=== PATIENT | female | born 1930 | race Caucasian/White ===

== ENCOUNTER → 2019-01-28 | Outpatient (CLI) | payer MEDICARE ==
[~2019-01-28] MED LIST: ASPIR 8181 MG PO; CALCIUM600 MG PO; CLOTRIMAZOLE-BE15 GM TOP; GABAPENTIN300 MG PO; GENERLAC10 GM/15 M PO; HYDROCODONE PO; MAGNESIUM250 MG PO; MULTIVITAMINS1 EAC8 PO; NEURONTIN100 MG PO; PREMARIN42.5 GM VG; PRILOSEC PO; PROBIOTIC 4X C1 EACH PO; SYNTHROID50 MCG; ULTRAM50 MG PO; VALIUM5 MG PO; VITAMIN B-121000 MCG PO; VITAMIN C500 M1 PO; VITAMIN D PO; VITAMIN E400 UNIT PO
--- NOTE | 2019-01-28 17:23 | Diagnostic Imaging Report ---
Exam: Chest radiograph Clinical History: Chest congestion Findings: The cardiomediastinal silhouette and lungs are normal. The regional skeleton and soft tissue are unremarkable. There is no evidence of pleural effusion or pneumothorax. Impression: No radiographic evidence of acute cardiopulmonary disease. Signed by: Dr. Kai Tang MD on 01/28/2019 5:20 PM
== END ==
LOC: RAD 15:25
DX: R09.89 Other specified symptoms and signs involving the circulatory and respiratory systems (principal)
CPT/HCPCS: 71046

== ENCOUNTER → 2019-07-06 | Day surgery (SDC) | payer MEDICARE ==
[~2019-07-06] MED LIST changes: +ACETAMINOPHEN 1000 MG/100 ML 0 ML IV ONE; +ACETAMINOPHEN 1000 MG/100 ML 100 ML IV ONE; +AMITRIPTYLINE H10 MG PO; +FENTANYL CITRATE/PF 100MCG/2 ML INJ ONE; +HYOSCYAMINE 0.125 MG TAB ONE; +KETAMINE HCL INJ 50 MG/ML 10 ML VIAL ONE; +LORAZEPAM PO; +MIDAZOLAM HCL 2 MG/2 ML VIAL ONE; +PROPOFOL IV EMULSION 10 MG/ML 50 ML VIAL ONE
--- OUTSIDE RECORDS SUMMARY | 2019-07-06 09:36 | XMS REPORT ---
Author [facility] Address Unknown Phone Unavailable Care Team Providers Care Neuro Ophthalmologist Name Role Phone YESENIA BEAVERS Unavailable Unavailable Nasreen KIRBY Unavailable Unavailable Payers Payer Name Policy Type Policy Number Effective Date Expiration Date Problems This patient has no known problems. Allergies, Adverse Reactions, Alerts Allergy Name Allergy Type Status Severity Reaction(s) Onset Date Inactive Date Treating Clinician Comments No Known Allergies DA Active U 2019-03-24 00:00:00 Medications This patient has no known medications. Results Test Description Test Time Test Comments Text Results Atomic Results Result Comments BASIC METABOLIC PANEL 2019-03-25 06:55:00 SODIUM (test code=NA) 141 mmol/L 136-145 POTASSIUM (test code=K) 4.1 mmol/L 3.5-5.1 CHLORIDE (test code=CL) 109.0 mmol/L 98-107 CARBON DIOXIDE (test code=CO2) 24.0 mmol/L 21-32 ANION GAP (test code=GAP) 12.1 10-20 GLUCOSE (test code=GLU) 95 mg/dL 74-106 BLOOD UREA NITROGEN (test code=BUN) 15 mg/dL 7-18 RESULT VERIFIED BY REPEAT ANALYSIS GLOMERULAR FILTRATION RATE (test code=GFR) 52 mL/min >=60 Estimated GFR by using Modified MDRD formula.Chronic kidney disease is defined as either kidney damageor GFR <60 mL/min/1.73 m2 for >3 months. CREATININE (test code=CREAT) 1.00 mg/dL 0.55-1.02 Note change in reference range due to change in reagent. BUN/CREATININE RATIO (test code=BUN/CREA) 15.0 10-20 CALCIUM (test code=CA) 8.7 mg/dL 8.5-10.1 CBC W/AUTO [id number] 06:43:00* Test Item Value Reference Range Comments WHITE BLOOD CELL (test code=WBC) 8.0 K/mm3 4.5-12.5 RED BLOOD CELL (test code=RBC) 4.05 mill/mm3 3.7-5.2 HEMOGLOBIN (test code=HGB) 11.0 gram/dL 11.5-15.5 HEMATOCRIT (test code=HCT) 34.9 % 36.0-46.0 MEAN CELL VOLUME (test code=MCV) 86.2 fL 80-98 MEAN CELL HGB (test code=MCH) 27.2 picogram 27.0-33.0 MEAN CELL HGB CONCETRATION (test code=MCHC) 31.5 gram/dL 33.0-36.0 RED CELL DISTRIBUTION WIDTH (test code=RDW) 15.0 % 11.6-16.2 RED CELL DISTRIBUTION WIDTH SD (test code=RDW-SD) 47.8 fL 37.0-51.0 PLATELET COUNT (test code=PLT) 239 K/mm3 150-450 MEAN PLATELET VOLUME (test code=MPV) 10.9 fL 6.7-11.0 NEUTROPHIL % (test code=NT%) 58.6 % 39.0-69.0 IMMATURE GRANULOCYTE % (test code=IG%) 0.5 % 0.0-5.0 LYMPHOCYTE % (test code=LY%) 26.5 % 25.0-55.0 MONOCYTE % (test code=MO%) 9.5 % 0.0-10.0 EOSINOPHIL % (test code=EO%) 4.0 % 0.0-5.0 BASOPHIL % (test code=BA%) 0.9 % 0.0-1.0 NUCLEATED RBC % (test code=NRBC%) 0.0 % 0-0 NEUTROPHIL # (test code=NT#) 4.71 K/mm3 1.8-7.7 IMMATURE GRANULOCYTE # (test code=IG#) 0.04 x10 3/uL 0-0.03 LYMPHOCYTE # (test code=LY#) 2.13 K/mm3 1.0-5.0 MONOCYTE # (test code=MO#) 0.76 K/mm3 0-0.8 EOSINOPHIL # (test code=EO#) 0.32 K/mm3 0.0-0.5 BASOPHIL # (test code=BA#) 0.07 K/mm3 0.0-0.2 NUCLEATED RBC # (test code=NRBC#) 0.00 K/mm3 0.0-0.1 MANUAL DIFF REQUIRED (test code=MDIFF) NO URINALYSIS [id number] 04:52:00* Test Item Value Reference Range Comments UA COLOR (test code=COLU) Light-Yellow YELLOW UA APPEARANCE (test code=APPU) CLEAR CLEAR UA GLUCOSE DIPSTICK (test code=DGLUU) NEGATIVE mg/dL NEGATIVE UA BILIRUBIN DIPSTICK (test code=BILU) NEGATIVE mg/dL NEGATIVE UA KETONE DIPSTICK (test code=KETU) NEGATIVE mg/dL NEGATIVE UA SPECIFIC GRAVITY (test code=SGU) 1.014 1.001-1.035 UA BLOOD DIPSTICK (test code=WIL) 0.06 mg/dL (1+) mg/dL NEGATIVE UA PH DIPSTICK (test code=MARIAN) 6.5 5.0-8.0 UA PROTEIN DIPSTICK (test code=PROU) NEGATIVE mg/dL NEGATIVE UA UROBILINIOGEN DIPSTICK (test code=URO) Normal mg/dL NEGATIVE UA NITRITE DIPSTICK (test code=ALEX) NEGATIVE NEGATIVE UA LEUKOCYTE ESTERASE W REFLEX (test code=LEUUR) NEGATIVE Sivakumar/uL NEGATIVE UA WBC (test code=WBCU) 0-5 per HPF 0-5 UA RBC (test code=RBCU) 0-2 #/HPF 0-5 UA EPITHELIAL CELLS (test code=EPIU) FEW per HPF FEW UA BACTERIA (test code=BACU) FEW #/HPF NONE Urine Source? Catheter- XR FEMUR MIN 2 VWS [id number] 09:34:00 FAX: Yeseina Connell MD [phone] [place]: B St: [facility] FAX: Fabiana Gates [phone] Name: MARILYN MANCINI [facility] : 1930 Age/S: 88/F [address] Unit #: [id number] Loc: [place], [place] [address] Phys: Fabiana Cline MD Acct: [id number] Dis Date: Status: ADM IN PHONE #: [phone] Exam Date: 03/24/2019904 FAX #: [phone] Reason: fall EXAMS: CPT CODE: [id number] XR FEMUR MIN [address] [place] [address] CLINICAL HISTORY: fall TECHNIQUE: 2 views of the left femur COMPARISON: Pelvis radiograph earlier today are available for review FINDINGS: No acute fracture or dislocat ion. Bony trabecular pattern is unremarkable. No cortical destruction or p eriosteal reaction. Degenerative changes in the left knee are bet ter described on the left knee radiographs performed today. Severe degener ative changes are present in the left hip with deformity of the left femor al head. 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 There are also degenerative changes in the left knee. However there is no acu te bony abnormality of the left femur. at 0934 Reported and signed by: Herminio Koch MD CC: Yesenia Beavers MD; Fabiana Cline MD Technologist: Cosmo Lal RT(R); BRITTNEY MITCHELL RT(R) Trncard Date/Time/By: 03/24/2019 (0934) : By: [email or web address] Orig Print D /T: S: 03/24/2019 (0937) PAGE 1 S igned Report - XR KNEE 3 V [id number] 09:31:00 FAX: Yesenia Connell MD [phone] [place]: St: [facility] FAX: Fabiana Gates [phone] Name: MARILYN MANCINI : 1930 Age/S: 88/F [address] Unit #: [id number] Loc: [place] [address] Phys: Fabiana Cline MD Acct: [id number] Dis Date: Status: ADM IN PHONE #: [phone] Exam Date: 03/24/2019904 FAX #: [phone] Reason: fall EXAMS: CPT CODE: [id number] XR KNEE 3 V LT [address] CLINICAL HISTORY: fall TECHNIQUE: 3 views of the left knee COMPARISON: None FINDINGS: No acute fracture. Bony trabecular pattern is unremarkable. No cortical dest ruction or periosteal reaction. Tricompartmental joint space narr owing with meniscal calcifications and small osteophytes are present. No j oint effusion or stranding in Hoffa's fat pad. IMP RESSION: Severe degenerative changes of the left knee but no acute fract ure or malalignment. Electronically Signed by Herminio Koch MD on 03/06 at 0931 Reported and signed by: Herminio Koch MD CC: Yesenia Beavers MD; Fabiana Cline MD Te chnologist: Cosmo Lal RT(R); BRITTNEY MITCHELL RT(R) Trnscrd Date/ Time/By: 03/24/2019 (0931) : By: [email or web address] Orig Print D/T: S: 03/24/20 19 (0918) PAGE 1 Signed Report DRUGS OF ABUSE SCREEN [id number] 08:52:00* Test Item Value Reference Range Comments UA PH DIPSTICK (test code=MARIAN) 5.5 5.0-8.0 URN COCAINE (test code=COCAURN) NEGATIVE <300 ng/mL URN CANNABINOIDS (test code=CANNABURN) NEGATIVE <50 ng/mL URN AMPHETAMINE (test code=AMPHETURN) NEGATIVE <1000 ng/mL URN BARBITURATE (test code=BARBITURN) NEGATIVE <200 ng/mL URN BENZODIAZEPINE (test code=BENZOURN) NEGATIVE <200 ng/mL URN OPIATES (test code=OPIATURN) POSITIVE <300 ng/mL This test provides only a preliminary test result. A morespecific alternate chemical method must be used in order toobtain a confirmed analytical result. Gas chromatography/mass spectrometry (GC/MS) is thepreferred confirmatory method. Other chemical confirmationmethods are available. Clinical consideration and professional judgment should be applied to any drug of abusetest result, particularly when preliminary positive resultsare used.Unconfirmed screening results must not be used fornon-medical purposes (e.g., employment testing, legaltesting). URN PHENCYCLIDINE (PCP) (test code=PHENCURN) NEGATIVE <25 ng/mL URN METHADONE (test code=METHAURN) NEGATIVE <300 ng/mL - XR PELVIS 1/2 [id number] 08:41:00 FAX: Yesenia Connell MD [phone] [place]: St: [facility] FAX: Fabiana Gates [phone] Name: MARILYN MANCINI [facility] : 1930 Age/S: 88/F [address] [facility] Unit #: [id number] Loc: [place] [address] Phys: Fabiana Cline MD Acct: [id number] Dis Date: Status: REG ER PHONE #: [phone] Exam Date: 03/24/2019 08 FAX #: [phone] Reason: fall EXAMS: CPT CODE: [id number] XR PELVIS 1/2 VIEWS 09316 HISTORY: fall EXAM: AP pelvis Com parison: None FINDINGS: No acute fracture of the bon y pelvis. There are severe degenerative changes in the left hip w ith deformity of the left femoral head as well as subchondral and scleroti c changes in both the left acetabulum and left femoral head. There are als o degenerative changes in the right hip. Degenerative changes are pr esent in the spine and sacroiliac joints. No diastases of the pubic symphy sis. IMPRESSION: No acute fracture or malalignm ent in the bony pelvis or hips or visualized spine. Severe degenerative changes are present in the hips and spine. Electronically S igned by Herminio Koch MD on 03/24/2019 at 0841 Reported a nd signed by: Herminio Koch MD CC: Yesenia Beavers MD; Omari Cline MD Technologist: Jorge Beck RT(R) Trnscrd Date/Time/By: 03/24/2019 (0841) : By: [email or web address] Orig Print D/T: S: 03/24/2019 (0845) PAGE 1 Signed Report DRUGS OF ABUSE SCREEN UR 2019-03-24 08:24:00* Test Item Value Reference Range Comments UA PH DIPSTICK (test code=MARIAN) 5.5 5.0-8.0 URN COCAINE (test code=COCAURN) <300 ng/mL URN CANNABINOIDS (test code=CANNABURN) <50 ng/mL URN AMPHETAMINE (test code=AMPHETURN) <1000 ng/mL URN BARBITURATE (test code=BARBITURN) <200 ng/mL URN BENZODIAZEPINE (test code=BENZOURN) <200 ng/mL URN OPIATES (test code=OPIATURN) <300 ng/mL URN PHENCYCLIDINE (PCP) (test code=PHENCURN) <25 ng/mL URN METHADONE (test code=METHAURN) <300 ng/mL URINALYSIS [id number] 07:52:00* Test Item Value Reference Range Comments UA COLOR (test code=COLU) Light-Yellow YELLOW UA APPEARANCE (test code=APPU) CLEAR CLEAR UA GLUCOSE DIPSTICK (test code=DGLUU) NEGATIVE mg/dL NEGATIVE UA BILIRUBIN DIPSTICK (test code=BILU) NEGATIVE mg/dL NEGATIVE UA KETONE DIPSTICK (test code=KETU) NEGATIVE mg/dL NEGATIVE UA SPECIFIC GRAVITY (test code=SGU) 1.015 1.001-1.035 UA BLOOD DIPSTICK (test code=WIL) 0.1 mg/dL (1+) mg/dL NEGATIVE UA PH DIPSTICK (test code=MARIAN) 5.5 5.0-8.0 UA PROTEIN DIPSTICK (test code=PROU) 20 (Trace) mg/dL NEGATIVE UA UROBILINIOGEN DIPSTICK (test code=URO) Normal mg/dL NEGATIVE UA NITRITE DIPSTICK (test code=ALEX) POSITIVE NEGATIVE UA LEUKOCYTE ESTERASE W REFLEX (test code=LEUUR) NEGATIVE Sivakumar/uL NEGATIVE UA WBC (test code=WBCU) 0-5 per HPF 0-5 UA RBC (test code=RBCU) 3-5 #/HPF 0-5 UA EPITHELIAL CELLS (test code=EPIU) FEW per HPF FEW UA BACTERIA (test code=BACU) MANY #/HPF NONE UA MUCUS (test code=MUCU) FEW #/LPF FEW UA AMORPHOUS SEDIMENT (test code=AMORU) FEW #/LPF NONE Urine Source? Clean [id number] 07:48:00* Test Item Value Reference Range Comments LIPASE (test code=LIP) 41 U/L 73.0-393.0 [id number] 07:44:00* Test Item Value Reference Range Comments GLUBED (test code=GLUBED) 133 mg/dL 74-106 Performed by certified wood carving machine operator at [facility] URINALYSIS [id number] 07:43:00* Test Item Value Reference Range Comments UA COLOR (test code=COLU) Light-Yellow YELLOW UA APPEARANCE (test code=APPU) CLEAR CLEAR UA GLUCOSE DIPSTICK (test code=DGLUU) NEGATIVE mg/dL NEGATIVE UA BILIRUBIN DIPSTICK (test code=BILU) NEGATIVE mg/dL NEGATIVE UA KETONE DIPSTICK (test code=KETU) NEGATIVE mg/dL NEGATIVE UA SPECIFIC GRAVITY (test code=SGU) 1.015 1.001-1.035 UA BLOOD DIPSTICK (test code=WIL) 0.1 mg/dL (1+) mg/dL NEGATIVE UA PH DIPSTICK (test code=MARIAN) 5.5 5.0-8.0 UA PROTEIN DIPSTICK (test code=PROU) 20 (Trace) mg/dL NEGATIVE UA UROBILINIOGEN DIPSTICK (test code=URO) Normal mg/dL NEGATIVE UA NITRITE DIPSTICK (test code=ALEX) POSITIVE NEGATIVE UA LEUKOCYTE ESTERASE W REFLEX (test code=LEUUR) NEGATIVE Sivakumar/uL NEGATIVE UA WBC (test code=WBCU) per HPF 0-5 UA RBC (test code=RBCU) per HPF 0-5 UA EPITHELIAL CELLS (test code=EPIU) per HPF Few UA BACTERIA (test code=BACU) per HPF NONE Urine Source? Clean CatchTHYROID STIMULATING [id number] 07:29:00* Test Item Value Reference Range Comments THYROID STIMULATING HORMONE (test code=TSH) 3.990 uIU/mL 0.36-3.74 TSH REFERENCE RANGES: EUTHYROID: 0.35 - 4.3 mIU/mL HYPO : > 5.5 mIU/mL HYPER : < 0.35 mIU/mL BASIC METABOLIC [id number] 07:28:00* Test Item Value Reference Range Comments SODIUM (test code=NA) 137 mmol/L 136-145 POTASSIUM (test code=K) 4.0 mmol/L 3.5-5.1 CHLORIDE (test code=CL) 104.0 mmol/L 98-107 CARBON DIOXIDE (test code=CO2) 23.0 mmol/L 21-32 ANION GAP (test code=GAP) 14.0 10-20 GLUCOSE (test code=GLU) 121 mg/dL 74-106 BLOOD UREA NITROGEN (test code=BUN) 27 mg/dL 7-18 GLOMERULAR FILTRATION RATE (test code=GFR) 33 mL/min >=60 Estimated GFR by using Modified MDRD formula.Chronic kidney disease is defined as either kidney damageor GFR <60 mL/min/1.73 m2 for >3 months. CREATININE (test code=CREAT) 1.50 mg/dL 0.55-1.02 Note change in reference range due to change in reagent. BUN/CREATININE RATIO (test code=BUN/CREA) 18.0 10-20 CALCIUM (test code=CA) 9.3 mg/dL 8.5-10.1 HEPATIC FUNCTION [id number] 07:28:00* Test Item Value Reference Range Comments TOTAL PROTEIN (test code=PROT) 7.7 gram/dL 6.4-8.2 ALBUMIN (test code=ALB) 3.1 g/dL 3.4-5.0 GLOBULIN (test code=GLOB) 4.6 gram/dL 2.7-4.2 ALBUMIN/GLOBULIN RATIO (test code=A/G) 0.7 0.75-1.50 BILIRUBIN TOTAL (test code=BILT) 0.20 mg/dL 0.0-1.0 BILIRUBIN DIRECT (test code=BILD) 0.11 mg/dL 0.0-0.20 SGOT/AST (test code=AST) 15 IUnit/L 15-37 SGPT/ALT (test code=ALT) 21 IUnit/L 12-78 ALKALINE PHOSPHATASE TOTAL (test code=ALKP) 123 IUnit/L 45-117 Note change in reference range due to change in reagent. [id number] 07:28:00* Test Item Value Reference Range Comments TROPONIN-I (test code=TROPI) <0.015 ng/mL 0-0.045 - CT C-SPINE W/O [id number] 07:27:00 Name: MARILYN MANCINI [facility] : 1930 Age/S: 88 / F [address] [facility] Unit #: [id number] Loc: [place] [address] Phys: Nika Richard DO Acct: [id number] Dis Date: Status: REG ER PHONE #: [phone] Exam Date: 03/24/2019704 FAX #: [phone] Reason: fall EXAMS: CPT CODE: [id number] CT C-SPINE W/O CONTRAST 28618 HISTORY: CODE SEPSIS TECHNIQUE: Noncontrast 2.[address] of the head and cervical spine. Examination acquired within 24 hours of arrival. Automated exposure control for dose reduction. COMPARISON: None FINDINGS: No lacerations or contusions of the scalp or facial soft tissues. Calvarium and skull base are intact. No acute hemorrhage. No intracranial mass, mass effect, or midline shift. No effacement of the sulci or wayne-white matter interface. There is mild cortical atrophy that is less than expected for the patient's age. There is decreas ed attenuation of the periventricular white matter compatible with microva scular ischemic changes. No hydrocephalus.. No extra-axial fluid c ollection. There is mild mucosal thickening in the left maxillary sinus with hyperostosis of the lateral sinus wall. Remaining paranasal si nuses are clear. Mastoid air cells and middle ear cavities are gal r. There is cerumen in the bilateral external auditory canals. Prior lens extraction bilaterally. No acute fracture of the cervical s pine. No subluxation. Craniocervical and cervicothoracic articulations are appropriate. There is severely decreased height loss of the inte rvertebral discs. This results in moderate bilateral foraminal narrowing a t C5-C6 and mild foraminal narrowing throughout the remainder of the spine . No prevertebral or paraspinal soft tissue abnormality. Pearl ng apices are clear. IMPRESSION: No acute intr acranial process. 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 PAGE 1 Signed Report (CONTINUED) Name: AMRILYN MANCINI [facility] : 1930 Age/S: 88 / F [address] Unit #: [id number] Loc: [place] [address] Phys: Nika Richard DO Acct: [id number] Dis Date: Status: REG ER PHONE #: [phone] Exam Date: 03/24/2019 07 FAX #: [phone] Reason: fall EXAMS: CPT CODE: [id number] C-SPINE W/O CONTRAST 52990 <Continued > Severe degenerative changes of the cervical spine with areas of mild to moderate foraminal narrowing but no fracture or subluxation. at 0727 Reported and signed by: Herminio Koch MD CC: Nika Richard DO Technologist:[place] RT(R) CTDI: DLP: Trnscb Date/Time: 03/24/2019 (726) [email or web address] Orig Print D/T: S: 03/24/2019 (729) PAGE 2 Signed Report - CT HEAD/BRAIN W/O [id number] 07:27:00 Name: MARILYN MANCINI [facility] : 1930 Age/S: 88 / F [address] [facility] Unit #: [id number] Loc: [place] [address] Phys: Nika Richard DO Acct: [id number] Dis Date: Status: REG ER PHONE #: [phone] Exam Date: 03/24/2019704 FAX #: [phone] Reason: CODE SEPSIS EXAMS: CPT CODE: [id number] CT HEAD/BRAIN W/O CONT 74914 HISTORY: CODE SEPSIS TECHNIQUE: Noncontrast 2.[address] of the head and cervical spine. Examination acquired within 24 hours of arrival. Automated exposure control for dose reduction. COMPARISON: None FINDINGS: No lacerations or contusions of the scalp or facial soft tissues. Calvarium and skull base are intact. No acute hemorrhage. No intracranial mass, mass effect, or midline shift. No effacement of the sulci or wayne-white matter interface. There is mild cortical atrophy that is less than expected for the patient's age. There is decreased attenuation of the periventricular white matter compatible with microvascular ischemic changes. No hydrocephalus.. No extra-axial fluid collection. There is mild mucosal thickening in the left maxillary sinus with hyperostosis of the lateral sinus wall. Remaining paranasal sinuses are clear. Mastoid air cells and middle ear cavities are clear. There is cerumen in the bilateral external auditory canals. Prior lens extraction bilaterally. No acute fracture of the cervical spine. No subluxation. Craniocervical and cervicothoracic articulations are appropriate. There is severely decreased height loss of the inte rvertebral discs. This results in moderate bilateral foraminal narrowing a t C5-C6 and mild foraminal narrowing throughout the remainder of the spine . No prevertebral or paraspinal soft tissue abnormality. Pearl ng apices are clear. IMPRESSION: No acute intr acranial process. 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 PAGE 1 Signed Report (CONTINUED) Name: MARILYN MANCINI [facility] : 1930 Age/S: 88 / F [address] Unit #: [id number] Loc: [place] [address] Phys: Nika Richard DO Acct: [id number] Dis Date: Status: REG ER PHONE #: [phone] Exam Date: 03/24/2019704 FAX #: [phone] Reason: CODE SEPSIS EXAMS: CPT CODE: [id number] HEAD/BRAIN W/O CONT 28124 <Continued > Severe degenerative changes of the cervical spine with areas of mild to moderate foraminal narrowing but no fracture or subluxation. at 0727 Reported and signed by: Herminio Koch MD CC: Niak Richard DO Technologist:[place] RT(R) CTDI: DLP: Trnscb Date/Time: 03/24/2019 (726) [email or web address] Orig Print D/T: S: 03/24/2019 (0311) PAGE 2 Signed Report PROTHROMBIN [id number] 07:25:00* Test Item Value Reference Range Comments PROTHROMBIN TIME PATIENT (test code=PTP) 11.1 seconds 9.0-14.0 INTERNATIONAL NORMAL RATIO (test code=INR) 0.9 0.8-1.2 The therapeutic range for oral anticoagulant therapy formost indications is an international normalized ratio (INR)of between 2.0 and 3.0. The recommended therapeutic INRrange for various clinical situations is listed below: Clinical Situation INR range Pulmonary e mbolism treatment (2.0-3.0)Venous thrombosis treatmentVenous thrombosis prophylaxis (high risk surgery)Prevention of systemic embolism from: Acute myocardial infarction Valvular heart disease Atrial fibrillation Mechanical prosthetic heart valves (2.5-3.5) IS PATIENT ON ANTICOAGULANTS? NTHROMBOPLASTIN TIME [id number] 07:25:00* Test Item Value Reference Range Comments THROMBOPLASTIN TIME PARTIAL (test code=PTT) 29.5 seconds 25.0-36.5 IS PATIENT ON ANTICOAGULANTS? NLACTIC [id number] 07:24:00* Test Item Value Reference Range Comments LACTIC ACID (test code=LACT) 1.7 mmol/L 0.4-1.9 - XR CHEST 1 [id number] 07:21:00 FAX: Nika Richard DO [place]: St: REG Name: MARILYN SANDERS [facility] : [birth year] Age/S: 88/F [address] [facility] Unit #: [id number] Loc: [place] [address] Phys: Nika Richard DO Acct: [id number] Dis Date: Status: REG ER PHONE #: [phone] Exam Date: 03/24/2019 0655 FAX #: [phone] Reason: CODE SEPSIS EXAMS: CPT CODE: [id number] XR CHEST 1 V 43101 REASON FOR EXAM: CODE SEPSIS Exam Order Date: 03/24/2019 6:46 AM Ordering M.D.: Nika Richard DO PROCEDURE: - XR CHEST 1 V COM PARISON: None FINDINGS: Volumes are diminished which cause s crowding of the bronchovascular structures. There is subsegmental atelec tasis in the lung bases. No pleural effusion or pneumothorax. Cardiomediastinal silhouette is normal in size for technique. The medias tinal contours are within normal limits. No acute musculoskeletal abnormality. The visualized upper abdomen is within normal limits. IMPRESSION: Low lung volumes with bibasilar sub segmental atelectasis. Upper lungs are clear. at 0721 Reported and signed by: Herminio Koch MD CC: Nika Richard DO Technologist: BRITTNEY MITCHELL RT(R) Trnscrd Date/Time/By: 03/24/2019 (07) : By: [email or web address] Orig Print D/T: S: 03/24/2019 (5112) PAGE 1 Signed Report [id number] 07:19:00* Test Item Value Reference Range Comments AMMONIA (test code=AMM) 18 umol/L 11-32 BASIC METABOLIC [id number] 07:15:00* Test Item Value Reference Range Comments SODIUM (test code=NA) 137 mmol/L 136-145 POTASSIUM (test code=K) 4.0 mmol/L 3.5-5.1 CHLORIDE (test code=CL) 104.0 mmol/L 98-107 CARBON DIOXIDE (test code=CO2) mmol/L 21-32 ANION GAP (test code=GAP) 10-20 GLUCOSE (test code=GLU) mg/dL 74-106 BLOOD UREA NITROGEN (test code=BUN) mg/dL 7-18 GLOMERULAR FILTRATION RATE (test code=GFR) mL/min >=60 CREATININE (test code=CREAT) mg/dL 0.55-1.02 BUN/CREATININE RATIO (test code=BUN/CREA) 10-20 CALCIUM (test code=CA) mg/dL 8.5-10.1 HEPATIC FUNCTION [id number] 07:15:00* Test Item Value Reference Range Comments TOTAL PROTEIN (test code=PROT) gram/dL 6.4-8.2 ALBUMIN (test code=ALB) g/dL 3.4-5.0 GLOBULIN (test code=GLOB) gram/dL 2.7-4.2 ALBUMIN/GLOBULIN RATIO (test code=A/G) 0.75-1.50 BILIRUBIN TOTAL (test code=BILT) mg/dL 0.0-1.0 BILIRUBIN DIRECT (test code=BILD) mg/dL 0.0-0.20 SGOT/AST (test code=AST) IUnit/L 15-37 SGPT/ALT (test code=ALT) IUnit/L 12-78 ALKALINE PHOSPHATASE TOTAL (test code=ALKP) IUnit/L 45-117 [id number] 07:15:00* Test Item Value Reference Range Comments TROPONIN-I (test code=TROPI) ng/mL 0-0.045 CBC W/AUTO [id number] 07:04:00* Test Item Value Reference Range Comments WHITE BLOOD CELL (test code=WBC) 10.3 K/mm3 4.5-12.5 RED BLOOD CELL (test code=RBC) 4.20 mill/mm3 3.7-5.2 HEMOGLOBIN (test code=HGB) 11.3 gram/dL 11.5-15.5 HEMATOCRIT (test code=HCT) 36.9 % 36.0-46.0 MEAN CELL VOLUME (test code=MCV) 87.9 fL 80-98 MEAN CELL HGB (test code=MCH) 26.9 picogram 27.0-33.0 MEAN CELL HGB CONCETRATION (test code=MCHC) 30.6 gram/dL 33.0-36.0 RED CELL DISTRIBUTION WIDTH (test code=RDW) 15.1 % 11.6-16.2 RED CELL DISTRIBUTION WIDTH SD (test code=RDW-SD) 48.9 fL 37.0-51.0 PLATELET COUNT (test code=PLT) 246 K/mm3 150-450 MEAN PLATELET VOLUME (test code=MPV) 10.6 fL 6.7-11.0 NEUTROPHIL % (test code=NT%) 66.5 % 39.0-69.0 IMMATURE GRANULOCYTE % (test code=IG%) 0.3 % 0.0-5.0 LYMPHOCYTE % (test code=LY%) 23.6 % 25.0-55.0 MONOCYTE % (test code=MO%) 7.0 % 0.0-10.0 EOSINOPHIL % (test code=EO%) 1.8 % 0.0-5.0 BASOPHIL % (test code=BA%) 0.8 % 0.0-1.0 NUCLEATED RBC % (test code=NRBC%) 0.0 % 0-0 NEUTROPHIL # (test code=NT#) 6.87 K/mm3 1.8-7.7 IMMATURE GRANULOCYTE # (test code=IG#) 0.03 x10 3/uL 0-0.03 LYMPHOCYTE # (test code=LY#) 2.44 K/mm3 1.0-5.0 MONOCYTE # (test code=MO#) 0.72 K/mm3 0-0.8 EOSINOPHIL # (test code=EO#) 0.19 K/mm3 0.0-0.5 BASOPHIL # (test code=BA#) 0.08 K/mm3 0.0-0.2 NUCLEATED RBC # (test code=NRBC#) 0.00 K/mm3 0.0-0.1 MANUAL DIFF REQUIRED (test code=MDIFF) NO CBC W/AUTO [id number] 07:03:00* Test Item Value Reference Range Comments WHITE BLOOD CELL (test code=WBC) K/mm3 4.5-12.5 RED BLOOD CELL (test code=RBC) mill/mm3 3.7-5.2 HEMOGLOBIN (test code=HGB) gram/dL 11.5-15.5 HEMATOCRIT (test code=HCT) 36.9 % 36.0-46.0 MEAN CELL VOLUME (test code=MCV) fL 80-98 MEAN CELL HGB (test code=MCH) picogram 27.0-33.0 MEAN CELL HGB CONCETRATION (test code=MCHC) gram/dL 33.0-36.0 RED CELL DISTRIBUTION WIDTH (test code=RDW) % 11.6-16.2 RED CELL DISTRIBUTION WIDTH SD (test code=RDW-SD) fL 37.0-51.0 PLATELET COUNT (test code=PLT) K/mm3 150-450 MEAN PLATELET VOLUME (test code=MPV) fL 6.7-11.0 NEUTROPHIL % (test code=NT%) % 39.0-69.0 IMMATURE GRANULOCYTE % (test code=IG%) % 0.0-5.0 LYMPHOCYTE % (test code=LY%) % 25.0-55.0 MONOCYTE % (test code=MO%) % 0.0-10.0 EOSINOPHIL % (test code=EO%) % 0.0-5.0 BASOPHIL % (test code=BA%) % 0.0-1.0 NEUTROPHIL # (test code=NT#) K/mm3 1.8-7.7 LYMPHOCYTE # (test code=LY#) K/mm3 1.0-5.0 MONOCYTE # (test code=MO#) K/mm3 0-0.8 EOSINOPHIL # (test code=EO#) K/mm3 0.0-0.5 BASOPHIL # (test code=BA#) K/mm3 0.0-0.2 CHEST 2 [id number] 17:20:00 [place] [address] Patient Name: MIGUEL MANCINI MR #: [id number] : 1930 Age/Sex: 88/F Req #: [id number] [facility] Physician: Ordered by: YESENIA BEAVERS MD Report #: [id number] Location: [facility] Room/Bed: Procedure: [id number] DX/ CHEST 2 VIEWS Exam Date: 01/28/19 Exam Time: 1610 REPORT STATUS: Signed Exam: Chest radiograph Clinical History: Chest congestion Findings: The cardi omediastinal silhouette and lungs are normal. The regional skeleton and soft t issue are unremarkable. There is no evidence of pleural effusion or pneumotho rax. Impression: No radiographic evidence of acute cardiopulmonary dis ease. Signed by: Dr. Kai Tang MD on 01/28/2019 5:20 PM Dictated B y: SALLY TANG MD 17 20 Transcribed By: PETER on 01/28/19 1720 COPY TO: YESENIA BEAVERS MD SCR MAMM BILATERAL YAW CAD [id number] 10:55:25 - SCR MAMM BILATERAL YAW CAD DIGITALBILATERAL DIGITAL SCREENING MAMMOGRAM 3D/2D WITH CAD: 05/31/2018CLINICAL: Asymptomatic. Digital breast tomosynthesis was performed in addition to routine CC and MLO views. Current mammographic images were evaluated by either a [employer]u or a [employer] Image[employer]er CAD (computer aided detection system). Comparison is made to exams dated 04/06/2017 mammogram, 12/31/2012 mammogram, 12/29/2011 mammogram, and 2010 mammogram - [facility]. The tissue of both breasts is predominantly fatty. There is a benign intramammary node in both breasts. There also is minimal vascular calci fication, benign calcifications, and a stable benign asymmetry in the right [address]. Additionally, there is a stable benign mass and a benign calcification in t he left breast. No suspicious new mass, architectural distortion, malignant typ e calcification, or lymph node abnormality detected. Breast architecture is sta ble compared to prior exams.IMPRESSION: BENIGNThere is no mammographic evidence of malignancy. Resume annual screening mammography in one year. Leodan Gomez M.D. rb/:06/01/2018 10:55:25 Metal Turner: Tee LOGAN, [facility]-FWletter sent: BIRADS 1-2 Normal Mammogram BI-RADS: 2 Benign HIP LEFT 2-3 VW (+/- PELVIS) [place] [address] Patient Name: MIGUEL MANCINI MR #: [id number] : 1930 Age/Sex: 86/F Req #: [id number] Adm Physician: Ordered by: BRONSON KIRBY MD Report #: [id number] Location: RAD Room/Bed: Procedure: [id number] DX/HIP LEFT 2-3 VW (+/- PELVIS ) Exam Date: Exam Time: REPORT STATUS: Anne d PROCEDURE: HIP LEFT 2-3 VW (+/- PELVIS) COMPARISON: MRI left hip 10/04/2013. INDICATIONS: CHRONIC LEFT HIP PAIN FINDINGS: No acu te fracture or dislocation. There is severe degenerative change of the lef t hip with joint space narrowing, subchondral sclerosis, and marginal osteoph ytosis. Superior migration of the left femoral head is present within the salvador tabulum. No expansile lytic or sclerotic lesion. Bone mineralization is wi thin normal limits. The soft tissues are unremarkable. CONCLUSION: Severe left hip degenerative change. No acute fracture. Dictated by: Andrey Kaur M.D. on 02/17/2017 at 13:15 Electronically approved by: Mario Kaur M.D. on 02/17/2017 at 13:15 Dictated By: ANDREY KAUR MD 131 Transcribed By: SONJA on 02/17/17 1315 COPY TO: BRONSON KIRBY MD
--- NOTE | 2019-07-06 20:05 | Operative Report ---
DATE OF PROCEDURE: 07/06/2019 SURGEON: Conor Beavers MD ADDENDUM: IMPRESSION: 1. Diverticulosis. 2. Internal hemorrhoids, none actively bleeding. Conor Beavers MD [facility] [place]/MODL /[id number]
--- NOTE | 2019-07-06 20:15 | Operative Report ---
DATE OF PROCEDURE: 07/06/2019 SURGEON: Conor Beavers MD PROCEDURES: EGD with biopsies and a colonoscopy note. INDICATIONS FOR EGD: Iron deficiency anemia. INDICATIONS FOR COLONOSCOPY: Colorectal cancer screening, positive occult blood in stool. MEDICATIONS: The patient was done under MAC, please see anesthesiologist's note. PROCEDURE IN DETAIL: With the patient in left lateral decubitus position, a flexible fiberoptic Olympus gastroscope was introduced into the esophagus under direct visualization without any difficulty. There was some patchy erythema noted in distal esophagus. GE junction was somewhat raised on nodular and friable, and biopsies were obtained. The scope was then advanced into the stomach. Mucosa overlying the antrum and the body revealed some patchy erythema and [id number] edema, and biopsies were obtained and sent to stain for H. pylori. The pylorus was of normal contour and shape, it was intubated with ease and the scope was advanced all the way to the second portion of the duodenum. The scope was then withdrawn slowly and mucosa overlying the proximal second portion and duodenal bulb appeared to be within normal limits. Biopsies were obtained to rule out sprue. The scope was then withdrawn back into the stomach and retroflexed, mucosa overlying the fundus and cardia appeared to be within normal limits. The scope was then straightened out, it was subsequently withdrawn. The patient tolerated the procedure well. IMPRESSION: 1. Distal esophagitis. 2. GE junction somewhat raised, nodular, biopsied. 3. Gastritis, biopsied, biopsies sent to stain for H. pylori. 4. Rule out sprue. PLAN: 1. Follow up histology. 2. Initiate Protonix 40 mg one p.o. q.a.m. a.c. DESCRIPTION OF PROCEDURE: The patient was then turned around after adequate lubrication of the anal canal, a flexible fiberoptic Olympus colonoscope was inserted into the rectum with ease and it could not be advanced beyond 30 cm from the anal verge. The sigmoid colon was sharply angulated and fixed. The scope was then withdrawn and then an EGD scope was inserted and the area was negotiated were some general persistent pressure with the EGD scope, which was advanced to approximately 100 cm from the anal verge. It was then withdrawn slowly and endoscopic visualization of the distal transverse descending sigmoid was suboptimal, but no obvious obstructing or constricting lesions. The scope was then retroflexed into the distal rectum and small internal hemorrhoids were noted, none of which was actively bleeding. The scope was then straightened out, it was subsequently withdrawn. The patient tolerated the procedure well. IMPRESSION: 1. Colonoscopy to 100 cm from the anal verge per the EGD scope. 2. Sharply angulated and fixed sigmoid colon, negotiated only with the EGD scope. Exam overall was suboptimal, but no obvious obstructing or constricting lesions. 3. Internal hemorrhoids, none actively bleeding. PLAN: 1. Follow H and H. 2. The patient will need air contrast barium enema. Conor Beavers MD [facility] [place][id number] cc: Stanley Beavers MD
== END | disposition home or self-care (01) ==
LOC: OR 09:33
PROVIDERS: ATTEND Internal Medicine Gastroenterology
DX: D50.9 Iron deficiency anemia, unspecified (principal); K31.7 Polyp of stomach and duodenum; K29.70 Gastritis, unspecified, without bleeding; K29.80 Duodenitis without bleeding; K20.9 Esophagitis, unspecified; K21.9 Gastro-esophageal reflux disease without esophagitis; K22.8 Other specified diseases of esophagus; R19.5 Other fecal abnormalities; K56.609 Unspecified intestinal obstruction, unspecified as to partial versus complete obstruction; K57.30 Diverticulosis of large intestine without perforation or abscess without bleeding; K64.8 Other hemorrhoids; G89.29 Other chronic pain; E03.9 Hypothyroidism, unspecified; R03.0 Elevated blood-pressure reading, without diagnosis of hypertension; F41.9 Anxiety disorder, unspecified; F32.9 Major depressive disorder, single episode, unspecified; Z88.6 Allergy status to analgesic agent; Z88.2 Allergy status to sulfonamides; Z01.810 Encounter for preprocedural cardiovascular examination; Z68.31 Body mass index [BMI] 31.0-31.9, adult
CPT/HCPCS: 43239; 45378; 88305; 88312; 93005; J2250; J3010

== ENCOUNTER → 2020-08-22 | Emergency (ER) | payer MEDICARE ==
[~2020-08-22] MED LIST changes: -ACETAMINOPHEN 1000 MG/100 ML 0 ML IV ONE; -ACETAMINOPHEN 1000 MG/100 ML 100 ML IV ONE; -FENTANYL CITRATE/PF 100MCG/2 ML INJ ONE; -HYOSCYAMINE 0.125 MG TAB ONE; -KETAMINE HCL INJ 50 MG/ML 10 ML VIAL ONE; -MIDAZOLAM HCL 2 MG/2 ML VIAL ONE; -PROPOFOL IV EMULSION 10 MG/ML 50 ML VIAL ONE
== END | disposition left against medical advice (07) ==
LOC: ER 21:45
DX: R52 Pain, unspecified (principal)

== ENCOUNTER → 2020-09-18 | Outpatient (CLI) | payer MEDICARE | LOC: CT 15:36 | DX: G30.0 Alzheimer's disease with early onset (principal) | CPT/HCPCS: 70450 ==

== ENCOUNTER 2020-10-29 16:24 | Emergency (ER) | payer MEDICARE ==
[~2020-10-29] VITALS: Ht 157.5 cm; Wt 75.7 kg
[2020-10-29 17:55] LABS: BASOPHILS # (AUTO) 0.1 (0.0-0.1); BASOPHILS % 1.1 % (0.0-1.0); EOSINOPHILS # (AUTO) 0.1 (0.0-0.4); EOSINOPHILS % 1.1 % (0.0-6.0); HEMOGLOBIN 12.5 g/dL (12.0-16.0); LYMPHOCYTES # (AUTO) 2.2 (1.0-3.2); LYMPHOCYTES % 27.5 % (18.0-39.1); MEAN CORPUSCULAR HEMOGLOBIN 27.7 pg (28-32); MEAN CORPUSCULAR HGB CONC 32.1 g/dL (31-35); MEAN CORPUSCULAR VOLUME 86.3 fL (81-99); MONOCYTES # (AUTO) 0.7 (0.2-0.8); MONOCYTES % 8.9 % (4.4-11.3); NEUTROPHILS # (AUTO) 4.9 (2.1-6.9); NEUTROPHILS % 60.8 % (38.7-80.0); PLATELET COUNT 249 x10e3/uL (140-360); RED BLOOD COUNT 4.52 x10e6/uL (3.6-5.1); RED CELL DISTRIBUTION WIDTH 15.4 % (11.7-14.4)
[2020-10-29 18:11] LABS: ALANINE AMINOTRANSFERASE 35 IU/L (0-55); ALBUMIN 3.3 g/dL (3.5-5.0); ALBUMIN/GLOBULIN RATIO 0.8 (0.8-2.0); ALKALINE PHOSPHATASE 142 IU/L (40-150); ANION GAP 16.2 mmol/L (8-16); BLOOD UREA NITROGEN 26 mg/dL (7-26); BUN/CREATININE RATIO 31 (6-25); CALCIUM 9.7 mg/dL (8.4-10.2); CARBON DIOXIDE 23 mmol/L (22-29); CHLORIDE 104 mmol/L (98-107); CREATINE KINASE 37 IU/L (29-168); CREATININE, SERUM 0.83 mg/dL (0.57-1.11); EST GLOMERULAR FILTRATION RATE > 60 ML/MIN (60-); GLUCOSE 110 mg/dL (74-118); POTASSIUM 4.2 mmol/L (3.5-5.1); SODIUM 139 mmol/L (136-145)
[2020-10-29 18:30] LABS: CLARITY,URINE SL CLOUDY (CLEAR); COLOR,URINE STRAW (YELLOW); KETONES,URINE NEGATIVE (NEGATIVE); LEUKOCYTE ESTERASE ,URINE NEGATIVE (NEGATIVE); NITRITE,URINE NEGATIVE (NEGATIVE); PROTEIN,URINE DIPSTICK TRACE (NEGATIVE); URINE UROBILINOGEN 0.2 mg/dL (0.2 - 1)
[2020-10-29] MEDS ORDERED: IOPAMIDOL 370 MG/ML 200 ML INFUS..BTL INJ ONE (18:39)
[2020-10-29] MEDS ORDERED: SODIUM CHLORIDE 0.9% 50ML 50 ML ONE (18:39)
[2020-10-29 18:43] LABS: AMORPHOUS SEDIMENT,URINE FEW (FEW); BACTERIA,URINE FEW /HPF
== END 2020-10-29 20:30 | disposition home or self-care (01) ==
LOC: ER 17:45
DX: R53.1 Weakness (principal); M54.9 Dorsalgia, unspecified; R32 Unspecified urinary incontinence; R15.9 Full incontinence of feces; M25.562 Pain in left knee; M25.561 Pain in right knee; G89.29 Other chronic pain
CPT/HCPCS: 36415; 51700; 71045; 74177; 80053; 81001; 82550; 82553; 84484; 85025; 99284; Q9967

== ENCOUNTER 2020-11-14 21:35 | Inpatient (IN) | payer MEDICARE ==
[~2020-11-14] VITALS: Ht 157.5 cm; Wt 72.1 kg
[2020-11-14 22:09] LABS: BASOPHILS # (AUTO) 0.1 (0.0-0.1); BASOPHILS % 0.5 % (0.0-1.0); EOSINOPHILS # (AUTO) 0.1 (0.0-0.4); EOSINOPHILS % 0.6 % (0.0-6.0); HEMATOCRIT 37.3 % (34.2-44.1); HEMOGLOBIN 12.1 g/dL (12.0-16.0); LYMPHOCYTES # (AUTO) 2.3 (1.0-3.2); LYMPHOCYTES % 17.6 % (18.0-39.1); MEAN CORPUSCULAR HEMOGLOBIN 27.9 pg (28-32); MEAN CORPUSCULAR HGB CONC 32.4 g/dL (31-35); MEAN CORPUSCULAR VOLUME 86.1 fL (81-99); MONOCYTES # (AUTO) 1.2 (0.2-0.8); MONOCYTES % 9.5 % (4.4-11.3); NEUTROPHILS # (AUTO) 9.2 (2.1-6.9); NEUTROPHILS % 71.1 % (38.7-80.0); PLATELET COUNT 276 x10e3/uL (140-360); RED BLOOD COUNT 4.33 x10e6/uL (3.6-5.1); RED CELL DISTRIBUTION WIDTH 15.4 % (11.7-14.4)
[2020-11-14 22:34] LABS: ALBUMIN 3.3 g/dL (3.5-5.0); ALBUMIN/GLOBULIN RATIO 0.8 (0.8-2.0); ANION GAP 16.8 mmol/L (8-16); CALCIUM 9.8 mg/dL (8.4-10.2); CREATININE, SERUM 1.46 mg/dL (0.57-1.11); POTASSIUM 3.8 mmol/L (3.5-5.1)
[2020-11-14 22:35] LABS: CLARITY,URINE CLOUDY (CLEAR); COLOR,URINE YELLOW (YELLOW)
[2020-11-14 22:36] LABS: KETONES,URINE 1+ (NEGATIVE); LEUKOCYTE ESTERASE ,URINE NEGATIVE (NEGATIVE); NITRITE,URINE NEGATIVE (NEGATIVE); PROTEIN,URINE DIPSTICK 1+ (NEGATIVE); URINE UROBILINOGEN 0.2 mg/dL (0.2 - 1)
[2020-11-14 22:37] LABS: BACTERIA,URINE MANY /HPF; EPITHELIAL CELLS,URINE MODERATE /LPF; YEAST,URINE MODERATE
[2020-11-14 22:42] LABS: CREATINE KINASE MB 19.8 ng/mL (0-5.0)
[2020-11-14] MEDS ORDERED: CEFTRIAXONE 1 GM in SODIUM CHLORIDE 0.9% 50ML 50 ML IV ONE (23:00)
[2020-11-14] MEDS ORDERED: CEFTRIAXONE 1 GM VIAL IV ONE (23:00)
[2020-11-14] MEDS ORDERED: ONDANSETRON HCL INJ 2MG/ML 2ML 2 MG/ML VIAL IV PRN (23:45)
[2020-11-14] MEDS: SODIUM CHLORIDE 0.9% 1000ML 1,000 ML IV SCH (23:55)
[2020-11-14] MEDS ORDERED: SODIUM CHLORIDE 0.9% 1000ML 1,000 ML ONE (23:55)
[2020-11-15] VITALS (8 sets, daily range): BP systolic 139–167; BP diastolic 72–81
[2020-11-15 07:23] LABS: BASOPHILS # (AUTO) 0.1 (0.0-0.1); BASOPHILS % 0.9 % (0.0-1.0); EOSINOPHILS # (AUTO) 0.2 (0.0-0.4); EOSINOPHILS % 2.3 % (0.0-6.0); HEMATOCRIT 35.4 % (34.2-44.1); HEMOGLOBIN 11.2 g/dL (12.0-16.0); LYMPHOCYTES # (AUTO) 2.2 (1.0-3.2); LYMPHOCYTES % 23.1 % (18.0-39.1); MEAN CORPUSCULAR HEMOGLOBIN 27.9 pg (28-32); MEAN CORPUSCULAR HGB CONC 31.6 g/dL (31-35); MEAN CORPUSCULAR VOLUME 88.3 fL (81-99); MONOCYTES # (AUTO) 0.9 (0.2-0.8); MONOCYTES % 9.4 % (4.4-11.3); NEUTROPHILS % 63.8 % (38.7-80.0); PLATELET COUNT 236 x10e3/uL (140-360); RED BLOOD COUNT 4.01 x10e6/uL (3.6-5.1); RED CELL DISTRIBUTION WIDTH 15.5 % (11.7-14.4)
[2020-11-15 07:58] LABS: ALBUMIN 2.8 g/dL (3.5-5.0); ALBUMIN/GLOBULIN RATIO 0.8 (0.8-2.0); ANION GAP 14.7 mmol/L (8-16); CALCIUM 8.7 mg/dL (8.4-10.2); CREATININE, SERUM 1.04 mg/dL (0.57-1.11); POTASSIUM 3.7 mmol/L (3.5-5.1)
[2020-11-15 08:17] LABS: CREATINE KINASE MB 7.4 ng/mL (0-5.0)
[2020-11-15] MEDS: SODIUM CHLORIDE 0.9% 1000ML 1,000 ML IV SCH ×2 (10:04→19:50)
[2020-11-15] MEDS ORDERED: HYDRALAZINE HCL 20 MG/ML VIAL IV PRN (17:00)
[2020-11-15] MEDS ORDERED: CEFTRIAXONE 1 GM in SODIUM CHLORIDE 0.9% 50ML 50 ML IV SCH (21:00)
[2020-11-16 00:38] VITALS: BP 155/73
[2020-11-16 05:32] LABS: BASOPHILS % 0.5 % (0.0-1.0); EOSINOPHILS # (AUTO) 0.1 (0.0-0.4); EOSINOPHILS % 1.9 % (0.0-6.0); HEMATOCRIT 35.6 % (34.2-44.1); HEMOGLOBIN 11.4 g/dL (12.0-16.0); LYMPHOCYTES # (AUTO) 1.9 (1.0-3.2); LYMPHOCYTES % 25.1 % (18.0-39.1); MEAN CORPUSCULAR HEMOGLOBIN 27.7 pg (28-32); MEAN CORPUSCULAR VOLUME 86.4 fL (81-99); MONOCYTES # (AUTO) 0.6 (0.2-0.8); MONOCYTES % 8.1 % (4.4-11.3); NEUTROPHILS # (AUTO) 4.8 (2.1-6.9); NEUTROPHILS % 63.6 % (38.7-80.0); PLATELET COUNT 237 x10e3/uL (140-360); RED BLOOD COUNT 4.12 x10e6/uL (3.6-5.1); RED CELL DISTRIBUTION WIDTH 15.4 % (11.7-14.4)
[2020-11-16 05:40] LABS: ANION GAP 13.2 mmol/L (8-16); BLOOD UREA NITROGEN 25 mg/dL (7-26); BUN/CREATININE RATIO 33 (6-25); CALCIUM 8.2 mg/dL (8.4-10.2); CARBON DIOXIDE 23 mmol/L (22-29); CHLORIDE 108 mmol/L (98-107); CREATININE, SERUM 0.75 mg/dL (0.57-1.11); EST GLOMERULAR FILTRATION RATE > 60 ML/MIN (60-); GLUCOSE 84 mg/dL (74-118); POTASSIUM 3.2 mmol/L (3.5-5.1); SODIUM 141 mmol/L (136-145)
[2020-11-16] MEDS: SODIUM CHLORIDE 0.9% 1000ML 1,000 ML IV SCH (06:10)
[2020-11-16 06:29] VITALS: BP 169/83
[2020-11-16] MEDS ORDERED: LEVOTHYROXINE SODIUM 50 MCG TAB PO SCH (07:00)
[2020-11-16 07:48] VITALS: BP 150/82
[2020-11-16] MEDS ORDERED: ONDANSETRON HCL 4 MG ORAL DISINTEGRATING TAB PO PRN (08:30)
[2020-11-16 08:34] VITALS: BP 150/82
[2020-11-16 11:44] VITALS: BP 159/82
[2020-11-16] MEDS ORDERED: POTASSIUM CHLORIDE 20 MEQ TAB CR PO ONE (12:15)
[2020-11-16] MEDS ORDERED: LIDOCAINE 4% PATCH TP SCH ×2 (15:00→18:00)
[2020-11-16] MEDS ORDERED: TRAMADOL HCL 50 MG TAB PO PRN (15:00)
[2020-11-16 16:02] VITALS: BP 158/96
== END 2020-11-16 18:00 | DRG 682 ==
LOC: ER 21:39 → ERHOLD 11-15 00:27 → MED/SURG3 11-15 01:41 → OBSVTOIN 11-15 14:13
DX: N17.9 Acute kidney failure, unspecified (principal); G93.41 Metabolic encephalopathy; N39.0 Urinary tract infection, site not specified; E86.0 Dehydration; G89.4 Chronic pain syndrome; W19.XXXA Unspecified fall, initial encounter; Y92.019 Unspecified place in single-family (private) house as the place of occurrence of the external cause; M16.12 Unilateral primary osteoarthritis, left hip; F41.9 Anxiety disorder, unspecified; F32.9 Major depressive disorder, single episode, unspecified; M25.561 Pain in right knee; E03.9 Hypothyroidism, unspecified
CPT/HCPCS: 36415; 70450; 71045; 72125; 73522; 80048; 80053; 81001; 82140; 82550; 82553; 83605; 84484; 85025; 87040; 87086; 93005; 97139; 99285; J0696; J7030; U0002

== ENCOUNTER 2020-11-24 16:08 | Emergency (ER) | payer MEDICARE ==
[~2020-11-24] VITALS: Ht 157.5 cm; Wt 72.1 kg
[2020-11-24] MEDS ORDERED: ACETAMINOPHEN 325 MG TAB ONE (20:39)
== END 2020-11-24 23:07 | disposition home or self-care (01) ==
LOC: ER 17:33
DX: M25.561 Pain in right knee (principal); M17.11 Unilateral primary osteoarthritis, right knee; E03.9 Hypothyroidism, unspecified; M54.9 Dorsalgia, unspecified; G89.29 Other chronic pain
CPT/HCPCS: 99283